=== PATIENT | female | born 1990 | race Caucasian/White ===

== ENCOUNTER 2016-10-05 18:51 | Emergency (ER) | payer BC, OTHER ==
[2016-10-05] MEDS ORDERED: diphenhydrAMINE 50 MG/1 ML VIAL IVP ONE (19:02)
[2016-10-05] MEDS ORDERED: KETOROLAC 30 MG/1 ML VIAL IVP ONE (19:02)
[2016-10-05] MEDS ORDERED: NORMAL SALINE 10 ML SYRINGE FLUSH IVP PRN (19:02)
[2016-10-05] MEDS ORDERED: Metoclopramide Inj 10 MG/2 ML VIAL IVP ONE (19:02)
[2016-10-05] MEDS ORDERED: Sodium Chloride 0.9% 1,000 ML PRIMARY IV ONE (19:02)
[2016-10-05 19:25] LABS: BASOPHILS # (AUTO) 0.06 10*3/UL; BASOPHILS % (AUTO) 0.7 % (0-1); EOSINOPHILS # (AUTO) 0.38 10*3/UL; EOSINOPHILS % (AUTO) 4.7 % (0-8); HEMOGLOBIN 13.5 g/dL (12.0-16.0); LYMPHOCYTES # (AUTO) 2.64 10*3/uL; MEAN CORPUSCULAR HEMOGLOBIN 28.4 PG (27-31); MEAN CORPUSCULAR HGB CONC 33.8 g/dL (33-37); MEAN PLATELET VOLUME 11.2 FL (7.4-12.2); MONOCYTES # (AUTO) 0.72 10*3/UL (0.3-0.8); MONOCYTES % (AUTO) 8.9 % (5-15); NEUTROPHILS # (AUTO) 4.25 10*3/UL; NEUTROPHILS % (AUTO) 52.8 % (50-80); RED BLOOD COUNT 4.76 10^6/uL (4.20-5.40)
[2016-10-05 19:35] LABS: PLATELET MORPHOLOGY COMMENT NORMAL MORPHOLOGY (NORM); RBC MORPHOLOGY COMMENT NORMAL MORPHOLOGY (NORM); WBC MORPHOLOGY COMMENT NORMAL MORPHOLOGY (NORM)
[2016-10-05 19:37] LABS: BLOOD UREA NITROGEN 11 mg/dL (7-22); BUN/CREATININE RATIO 13.75 (6-20); CALCIUM 8.9 mg/dL (8.7-10.7); EST GLOMERULAR FILTRATION > 60 (>60 ml/min/1.73m(2)); SERUM ALBUMIN 4.4 g/dL (3.5-4.8)
[2016-10-05 19:55] VITALS: RESP 18; TEMP 97.4
--- NOTE | 2016-10-05 23:35 | PDOC ---
Headache HPI - General Chief Complaint: Headache Stated Complaint: HEADACHE Date Seen by Provider: 10/05/16 Time Seen by Provider: 18:50 Source: POSITIVE: Patient, Spouse Exam Limitations: POSITIVE: No limitations Nurse's Notes Reviewed & Considered: Yes - History of Present Illness Initial Comments: The patient is a 26 year old female. She complains of a circumferential headache, mainly bifrontal, for the past 4 hours. 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 She also complains of feeling somewhat dizzy. She complains of photophobia and nausea but has not had any vomiting. She smokes a half a pack of cigarettes per day. She is on no medications and states she is allergic to penicillin. Body Location Affected: REPORTS: Head Timing: REPORTS: Constant, Gradual. DENIES: Abrupt Duration: 4-6 hours (Approximately 4 hours) Severity: Moderate Quality: REPORTS: "Pain", Throbbing, Tenderness (Scalp tender on palpation) Context: DENIES: CO Exposure, Tick Bite, Insect Bite, Recent Head Injury, Other Associated Symptoms: REPORTS: Sensitivity to Light, Nausea, Dizziness. DENIES: Fever, Chills, Sweating, Problems with Vision, Visual Disturb Preceding, [place] Preceding, Typical of Prior Aura(s), Vomiting, Neck Pain, Stiffness, Speech Problems, Weakness, Trouble Walking, Tingling, Numbness, Lightheadedness , Other Exacerbated by: REPORTS: Light Any Prior Injuries Related to Current Complaint?: No - Patient Home Medications Home Medications: Home Medications Acetaminophen [Tylenol] 325 mg PO PRN PRN 08/03/12 Ibuprofen [Advil] 200 mg PO PRN PRN 08/03/12 - Patient Allergies Allergies/Adverse Reactions: Allergies Allergy/AdvReac Type Severity Reaction Status Date / Time Penicillins Allergy Severe Anaphylaxis Verified 10/05/16 19:10 Past Medical History - heen HEENT History: Denies History Cardiovascular History: Denies History Respiratory History: Denies History Additional Respiratory History: SPOKE WITH MATIAS ON 08/02. SHE SOUNDED VERY CONGESTED AND NASAL STUFFY. SURGERY WAS BACKED OFF AND PATIENT IS AWARE THAT IF LUNG CONGESTION IS NOT RESOLVED GIVING AT LEAST 2 WEEKS CONGESTION FREE TO SX. DATE, SX WILL NEED TO BE BACK OFF MORE. ENCOURAGED TO SEE PCP IF SYMPTOMS NOT RESOLVED SOON Gastrointestinal History: GERD Genitourinary History: Denies History Endocrine History: Denies History Musculoskeletal History: Denies History Neurological History: Denies History Blood Disorders: Denies History Psychiatric History: Denies History History of Sexually Transmitted Diseases: No Cancer History: Denies History In Past Year Been Physically Harmed or Verbally Threatened: No History of MDRO: No History of Other Communicable Diseases: No Tobacco Use: Current Every Day Smoker Alcohol Use: Other How much alcohol do you normally drink a day?: pt reports drinks "socially" Substance Use Type: None Previous Surgical History: Yes Type / Date of Surgery: D&C/ RIGHT KNEE SCOPE Anesthesia Reactions: No Malignant Hyperthermia: No Significant Family History: No pertinent family hx Past Medical History Reviewed: Reviewed - No Changes ROS - Limitations ROS Limitations: No Limitations Constitution: REPORTS: Denies Symptoms Cardiovascular: REPORTS: Denies Cardiac Symptoms Respiratory: REPORTS: Denies Resp Symptoms Neurological: REPORTS: Headache Gastrointestinal: REPORTS: Nausea Endocrine: REPORTS: Denies Symptoms Musculoskeletal: REPORTS: Denies MS Symptoms Genitourinary: REPORTS: Denies Symptoms Eyes: REPORTS: Other (Photophobia) ENT: REPORTS: Denies Symptoms Skin: REPORTS: Denies Skin Symptoms Lympathic: REPORTS: Denies Lympathic Symptoms Immunologic: POSITIVE: Denies Symptoms Psychiatric: POSITIVE: Denies Psych Symptoms Headache Exam - General Appearance General Appearance: POSITIVE: Alert, Cooperative, No Acute Distress, No Evidence of Trauma - HEENT Head / Face: POSITIVE: Atraumatic, Normal Inspection, No Facial Swelling Eyes: POSITIVE: Inspection Normal, PERRL, EOM's Intact, Eyelids Uninjured, Conjunctivae Uninjured, No Nystagmus, No Globe Trauma, Sclera Normal, Normal Fundoscopic Exam, No Papilledema Ears: POSITIVE: Ears Normal Inspection, TM Normal Inspection, Auricle Normal, External Canal Normal Nose: POSITIVE: Inspection Normal, No Apparent Trauma, Nares Normal, No CSF Leak Oropharynx: POSITIVE: External Inspection Nml, Pharynx Inspect. Nml, Airway Intact, Voice Normal, Moist Mucous Membranes, No Oral Injury, Lips Normal, Gums Normal, No Drooling, No Thrush, Normal Gag Reflex Dental: POSITIVE: No Dental Injury - Pupil Size Pupil Size: 4 mm: Bilateral (PERRLA) - Neck Neck: POSITIVE: Normal Inspection, Supple - Respiratory / CVS Respiratory / CVS: POSITIVE: Chest Non-Tender, No Respiratory Distress, Heart Sounds Normal, Regular Rate/Rhythm, Breath Sounds Normal Peripheral Pulses: Radial (R): 2+, Radial (L): 2+ - Abdomen Abdomen: Soft: (All Quadrants), Normal Bowel Sounds: (All Quadrants), Denies Tenderness: (All Quadrants), No Splenomegaly: (All Quadrants), No Hepatomegaly: (All Quadrants), No Guarding: (All Quadrants), No Rebound: (All Quadrants), No Palpable Pulse: (All Quadrants), No Palpabale Mass: (All Quadrants), No Distention: (All Quadrants), No Rigidity: (All Quadrants) - Skin Skin: POSITIVE: Intact, Normal Palpation - Extremities Extremity: Non-Tender: (All Extremities), Normal ROM: (All Extremities), Normal Inspection: (All Extremities) - Neuro / Psych Higher Functions: POSITIVE: Alert, Oriented x3, Normal Speech, Mood Appropriate , Affect Appropriate Cranial Nerves: POSITIVE: Normal As Tested, No Evidence of Acute CVA Cerebellar: POSITIVE: Normal As Tested Sensorimotor: POSITIVE: No Motor Deficits, No Sensory Deficits Images - Head Head: 1 - Area of headache and scalp tenderness 2 - Area of headache and scalp tenderness Headache Progress - Results Reviewed by me Lab Results Reviewed: Yes Lab Results:: Laboratory Results 10/05/16 Range/Units 19:22 WBC 8.06 (4.8-10.8) 10^3/uL RBC 4.76 (4.20-5.40) 10^6/uL Hgb 13.5 (12.0-16.0) g/dL Hct 40.0 (37.0-47.0) % MCV 84.0 (81-99) FL MCH 28.4 (27-31) PG MCHC 33.8 (33-37) g/dL RDW Std Deviation 38.4 L (39-50) fL RDW Coeff of Fransisca 12.8 (11.5-14.5) % Plt Count 261 (140-350) 10*3/uL MPV 11.2 (7.4-12.2) FL Immature Gran % (Auto) 0.1 (0-5) % Neut % (Auto) 52.8 (50-80) % Lymph % (Auto) 32.8 (10-50) % [place] % (Auto) 8.9 (5-15) % Eos % (Auto) 4.7 (0-8) % Baso % (Auto) 0.7 (0-1) % Immature Gran # (Auto) 0.01 10*3/UL Neut # (Auto) 4.25 10*3/UL Lymph # (Auto) 2.64 10*3/uL [place] # (Auto) 0.72 (0.3-0.8) 10*3/UL Eos # (Auto) 0.38 10*3/UL Baso # (Auto) 0.06 10*3/UL WBC Morphology Comment Normal morphology (NORM) Plt Morphology Comment Normal morphology (NORM) RBC Morph Comment Normal morphology (NORM) Sodium 138 (135-145) meq/L Potassium 3.8 (3.8-5.2) meq/L Chloride 105 (98-112) meq/L Carbon Dioxide 23 (23-33) meq/L Anion Gap 10 (5-20) BUN 11 (7-22) mg/dL Creatinine 0.8 (0.50-1.20) mg/dL Estimated GFR > 60 (>60 ml/min/1.73m(2)) BUN/Creatinine Ratio 13.75 (6-20) Glucose 87 (78-110) mg/dL Calculated Osmolality 283.0 (267-292) mOsm/kg Calcium 8.9 (8.7-10.7) mg/dL Total Bilirubin 0.4 (0.3-1.2) mg/dL AST 56 H (8-39) IU/L ALT 43 (9-52) IU/L Alkaline Phosphatase 69 (38-126) IU/L Total Protein 7.6 (6.1-8.0) g/dL Albumin 4.4 (3.5-4.8) g/dL Globulin 3.3 (2.50-4.10) g/dL Albumin/Globulin Ratio 1.30 (1.3-2.0) mg/g Serum HCG, Qual Negative - Patient's Progress Pain Medication Addressed: POSITIVE: Yes (Patient given a liter of normal saline along with 30 mg Toradol IV, 10 mg Reglan IV, 25 mg Benadryl IV. Headache much improved on discharge) School/Work Release Addressed: POSITIVE: Yes (2 rest for the next day) Re-Examine Time:: 20:35 Re-Examine Comment: Headache much improved Status: POSITIVE: Improved, Re-Examined, Pain Almost Comp Relieved If Syncope - Was EKG Completed: No - Consult Consult (If Yes, Name of Consulting MD & Time Called): No Counseled: POSITIVE: Patient, Family, RE: Lab Results, RE: DX, RE: Need for F/U Patient Care Time - Estimated PCT Patient Care Time (In Minutes): 50 Vital Signs - Recent Vital Signs Vital Signs: Vital Signs (Last 8 hours) Temp Pulse Resp BP Pulse Ox 10/05/16 19:00 97.4 F 73 18 156/106 96 - VS Reviewed Vital Signs Reviewed: Yes Discharge Clinical Impression: Migraine Discharge Disposition: Discharged to Home Condition: Stable Patient Instructions Given at Discharge: Migraine Headache (ED) Additional Instructions: I'm glad you're headache is better. I believe it you had a migraine headache. Please rest tonight. Go home and sleep. Tylenol as necessary for any residual headache. Return anytime if condition worsens. Follow-up with your primary care provider. Follow Up With: NONE,NONE [Primary Care Provider] - (Instructions as above. Follow-up with your primary care provider. Return as necessary.)
== END 2016-10-05 20:57 | disposition home or self-care (01) ==
LOC: ER 18:51
DX: G43.009 Migraine without aura, not intractable, without status migrainosus (principal); R42 Dizziness and giddiness; H53.143 Visual discomfort, bilateral
CPT/HCPCS: 80053; 84703; 85025; 96361; 96374; 96375; 99282; 99283; J1200; J1885; J2765; J7030

== ENCOUNTER → 2016-10-09 | Outpatient (CLI) | payer OTHER ==
--- NOTE | 2016-10-09 08:25 | DI ---
CT HEAD SCAN WITHOUT IV CONTRAST, 10/09/2016 7:55 AM : Clinical History: Acute intractable headache. Previous Exam: None at this facility. Scans are obtained from the foramen magnum to the vertex without IV contrast. The 4th, 3rd, and lateral ventricles are of normal size, shape, position, and contour for the patient 's age. There are no abnormal areas of increased or decreased density. There is no evidence of an acu te hemorrhagic or bland infarct. There are no extracerebral mantles or shift of the midline structure s. There is sclerosis of the right mastoid air cells consistent with chronic mastoiditis. Bone window evaluation is otherwise normal. There is almost complete opacification of the left maxillary sinus w ith similar findings in the left ethmoid sinus. Moderate opacification of the right ethmoid sinus is noted along with mucosal thickening of the sphenoid air cells. The frontal sinuses and the right maxi llary sinus are normal. READIN. Normal non contrast CT head scan. 2. Chronic right mastoiditis. 3. Sinusitis involving the ethmoid and left maxillary and the sphenoid sinuses.
== END ==
LOC: CT 07:50
PROVIDERS: ATTEND Physician Assistant Medical
DX: R51 Headache (principal); H70.11 Chronic mastoiditis, right ear; J32.8 Other chronic sinusitis
CPT/HCPCS: 70450